=== PATIENT | female | born 1965 | race Caucasian/White ===

== ENCOUNTER 2021-08-16 10:36 | Emergency (ER) | payer MEDICARE, OTHER ==
[~2021-08-16 10:36] MED LIST: ALLOPURINOL100 MG PO; ANTI-FUNGAL CR198 GM TOP; ASCORBIC ACID500 MG PO; CELEXA20 MG PO; CLONIDINE HCL0.1 MG PO; COREG25 MG PO; FEOSOL325 MG PO; FIBER-LAX625 MG PO; FLORASTOR250 MG PO; HUMULIN 70100 UNIT/2 SC; HYDRALAZINE25 MG PO; ISOSORBIDE MONO60 MG PO; KEPPRA XR500 MG PO; LANTUS **100 UNITS/ SC; LASIX40 MG PO; LEVAQUIN500 MG PO; LIPITOR40 MG PO; LISINOPRIL20 MG PO; NEURONTIN100 MG PO; NORVASC5 MG PO; PROTONIX 40MG T40 MG PO; PROVENTIL HFA6.7 GM INH; SODIUM BICARBO650 M1 PO; SYNTHROID125 MCG PO; TIZANIDINE HCL2 M1 PO; ULTRAM50 MG PO; VITAMIN D32400 UNIT/ PO; ZINC-22050 MG PO
[2021-08-16 11:13] LABS: BASOPHIL 0.9 % (0-2); HCT 27.8 % (37.0-47.0); LYMPHOCYTE 23.4 % (15-48); MCH 31.5 pg (25.0-31.0); MCHC 31.3 g/dL (32.0-36.0); MCV 100.7 fL (78.0-100.0); MONOCYTE 5.8 % (0-12); MPV 9.7 fL (6.0-9.5); NEUTROPHIL 62.8 % (41-80); NRBC 0; PLT 143 K/uL (150-400); RBC 2.76 M/uL (4.20-5.40); RDW 13.9 % (11.5-14.0); WBC 6.4 K/uL (4.0-10.5)
[2021-08-16 11:14] LABS: HGB 8.7 g/dl (12.5-16.0)
[2021-08-16 11:18] LABS: INR 1.07 (0.9-1.2); PROTHROMBIN TIME 13.3 SECONDS (11.8-13.4)
[2021-08-16 11:28] LABS: ALBUMIN 3.1 g/dL (3.4-5.0); BILIRUBIN - TOTAL 0.2 mg/dL (0.2-1.0); BUN/CREAT RATIO (CALC) 16.5 RATIO; CREATININE 3.33 mg/dL (0.51-0.95); POTASSIUM 4.6 mmol/L (3.5-5.1); TOTAL PROTEIN 7.1 g/dL (6.4-8.2)
[2021-08-16 12:28] LABS: BILIRUBIN NEGATIVE (NEGATIVE); BLOOD NEGATIVE Ery/uL (NEGATIVE); CLARITY CLEAR (CLEAR); COLOR YELLOW (YELLOW); GLUCOSE (U) TRACE mg/dL (NORMAL); LEUKOCYTES NEGATIVE Leu/uL (NEGATIVE); NITRITE NEGATIVE (NEGATIVE); PROTEIN 2+ mg/dL (NEGATIVE); UROBILINOGEN 0.2 mg/dL (0.2-1.0); pH 6.5 (5.0-9.0)
== END 2021-08-16 14:26 | disposition other institution (70) ==
LOC: FER 10:36
PROVIDERS: Emergency Medicine
DX: I63.9 Cerebral infarction, unspecified (principal); R29.703 NIHSS score 3; I11.0 Hypertensive heart disease with heart failure; I50.9 Heart failure, unspecified; E11.9 Type 2 diabetes mellitus without complications; Z88.5 Allergy status to narcotic agent; Z88.6 Allergy status to analgesic agent; Z88.8 Allergy status to other drugs, medicaments and biological substances; Z88.2 Allergy status to sulfonamides; Z91.040 Latex allergy status
CPT/HCPCS: 36415; 70450; 71045; 80053; 81001; 84484; 85025; 85610; 93005; J0696

== ENCOUNTER 2021-10-10 03:58 | Emergency (ER) | payer MEDICARE, OTHER ==
[2021-10-10 04:39] LABS: BASOPHIL 0.3 % (0-2); EOSINOPHIL 0.2 % (0-5); HCT 23.3 % (37.0-47.0); HGB 7.2 g/dl (12.5-16.0); LYMPHOCYTE 2.5 % (15-48); MCH 31.4 pg (25.0-31.0); MCHC 30.9 g/dL (32.0-36.0); MCV 101.7 fL (78.0-100.0); MPV 9.9 fL (6.0-9.5); NRBC 0; PLT 116 K/uL (150-400); RBC 2.29 M/uL (4.20-5.40); RDW 14.7 % (11.5-14.0)
[2021-10-10 04:44] LABS: NEUTROPHIL 93.5 % (41-80)
[2021-10-10 05:02] LABS: ALBUMIN 2.7 g/dL (3.4-5.0); BILIRUBIN - TOTAL 0.5 mg/dL (0.2-1.0); BUN/CREAT RATIO (CALC) 12.6 RATIO; CREATININE 3.5 mg/dL (0.51-0.95); GLOBULIN (CALCULATION) 3.4 g/dL; POTASSIUM 5.5 mmol/L (3.5-5.1); TOTAL PROTEIN 6.1 g/dL (6.4-8.2)
[2021-10-10 05:18] LABS: CORONAVIRUS 2019 SARS-COV-2 NEGATIVE (NEGATIVE); INFLUENZA A NAA NEGATIVE (NEGATIVE)
[2021-10-10 05:27] LABS: INR 1.15 (0.9-1.2); PROTHROMBIN TIME 14.4 SECONDS (11.9-13.9); PTT 30.5 SECONDS (24.9-34.6)
[2021-10-10 05:39] LABS: BILIRUBIN NEGATIVE (NEGATIVE); BLOOD NEGATIVE Ery/uL (NEGATIVE); CLARITY CLEAR (CLEAR); COLOR YELLOW (YELLOW); GLUCOSE (U) TRACE mg/dL (NORMAL); LEUKOCYTES NEGATIVE Leu/uL (NEGATIVE); NITRITE NEGATIVE (NEGATIVE); PROTEIN 3+ mg/dL (NEGATIVE); UROBILINOGEN 0.2 mg/dL (0.2-1.0)
[2021-10-10 05:42] LABS: LACTIC ACID 1.6 mmol/L (0.4-1.9)
[2021-10-10 06:00] LABS: URINARY RBC RARE
== END 2021-10-10 08:35 | disposition other institution (70) ==
LOC: FER 03:58
PROVIDERS: Emergency Medicine
DX: R41.82 Altered mental status, unspecified (principal); R09.02 Hypoxemia; I21.4 Non-ST elevation (NSTEMI) myocardial infarction; R65.10 Systemic inflammatory response syndrome (SIRS) of non-infectious origin without acute organ dysfunction; E11.22 Type 2 diabetes mellitus with diabetic chronic kidney disease; I13.0 Hypertensive heart and chronic kidney disease with heart failure and stage 1 through stage 4 chronic kidney disease, or unspecified chronic kidney disease; N18.9 Chronic kidney disease, unspecified; I50.9 Heart failure, unspecified; F03.90 Unspecified dementia, unspecified severity, without behavioral disturbance, psychotic disturbance, mood disturbance, and anxiety; Z88.2 Allergy status to sulfonamides; Z88.6 Allergy status to analgesic agent; Z88.5 Allergy status to narcotic agent; Z20.822 Contact with and (suspected) exposure to COVID-19
CPT/HCPCS: 36415; 36600; 70450; 71045; 80053; 81001; 82803; 83605; 83880; 84145; 84484; 85025; 85610; 85730; 87040; 93005; 96365; 96366; 96375; J0692; J1644; U0002

== ENCOUNTER 2021-12-12 20:47 | Emergency (ER) | payer MEDICARE, OTHER | END 2021-12-13 01:15 | disposition home or self-care (01) | LOC: FER 20:47 | DX: S43.402A Unspecified sprain of left shoulder joint, initial encounter (principal); M25.552 Pain in left hip; M25.562 Pain in left knee; Z89.512 Acquired absence of left leg below knee; Z88.5 Allergy status to narcotic agent; Z28.311 Partially vaccinated for COVID-19; Z91.040 Latex allergy status; W19.XXXA Unspecified fall, initial encounter; Y92.129 Unspecified place in nursing home as the place of occurrence of the external cause | CPT/HCPCS: 73030; 73502; 73560; J1885 ==